=== PATIENT | female | born 1945 | race Hispanic/Latino ===

== ENCOUNTER → 2018-03-30 | Outpatient (CLI) | payer MEDICARE ==
[~2018-03-30] MED LIST: AMLO10TA6 PO; CHOL100040 PO; CLOP75TA32 PO; DOCU240C25 PO; FOLI1TAB85 PO; GABA-529 PO; LABE300T2 PO; LEVE500T19 PO; SIMV20TA6 PO; THIA250T6 PO
== END | disposition home or self-care (01) ==
LOC: RAH 06:51
PROVIDERS: ATTEND Physical Medicine & Rehabilitation
DX: M79.604 Pain in right leg (principal)
CPT/HCPCS: 73218

== ENCOUNTER → 2019-06-14 | Outpatient (CLI) | payer MEDICARE ==
[~2019-06-14] MED LIST changes: -AMLO10TA6 PO; +AMLO10TA7 PO; +SIMV-43 PO; -SIMV20TA6 PO; -THIA250T6 PO; +THIA250T9 PO
== END | disposition home or self-care (01) ==
LOC: RAH 10:27
PROVIDERS: ATTEND Physical Medicine & Rehabilitation
DX: M50.121 Cervical disc disorder at C4-C5 level with radiculopathy (principal); M50.122 Cervical disc disorder at C5-C6 level with radiculopathy; M50.123 Cervical disc disorder at C6-C7 level with radiculopathy; M50.021 Cervical disc disorder at C4-C5 level with myelopathy; M50.023 Cervical disc disorder at C6-C7 level with myelopathy; M50.022 Cervical disc disorder at C5-C6 level with myelopathy
CPT/HCPCS: 72141

== ENCOUNTER → 2025-03-06 | Outpatient (CLI) | payer MEDICARE ==
[~2025-03-06] MED LIST changes: +AMLO-258 PO; -AMLO10TA7 PO; -LABE300T2 PO; +LABE300T4 PO
--- NOTE | 2025-03-06 19:35 | HMCIMG ---
EXAM: CR left Tibia and fibula, 2 View. CLINICAL HISTORY: PAIN IN LEFT LEG COMPARISON: None provided. FINDINGS: BONES: No acute fracture or aggressive appearing osseous lesion. JOINTS: No dislocation. The joint spaces are normal. SOFT TISSUES: The soft tissues are unremarkable. IMPRESSION: No acute osseous abnormality. /[place]
--- NOTE | 2025-03-06 19:37 | HMCIMG ---
EXAM: CR left Knee, 2 View. CLINICAL HISTORY: PAIN IN LEFT KNEE COMPARISON: None provided. FINDINGS: BONES: No acute fracture or aggressive appearing osseous lesion. JOINTS: The joint spaces show no significant degenerative disease. There is no joint effusion appreciated. SOFT TISSUES: The soft tissues are unremarkable. IMPRESSION: No acute osseous pathology evident. /[place]
== END | disposition home or self-care (01) ==
LOC: RAH 12:59
PROVIDERS: ATTEND Family Medicine
DX: M79.605 Pain in left leg (principal); M25.562 Pain in left knee
CPT/HCPCS: 73560; 73590